=== PATIENT | female | born 1990 | race Caucasian/White ===

== ENCOUNTER 2019-03-27 09:33 | Emergency (ER) | payer BC ==
[2019-03-27 11:14] VITALS: BP 143/92
--- NOTE | 2019-03-27 11:42 | UC ---
Eye Complaint HPI - History of Current Complaint Chief Complaint: UCEar Stated Complaint: EAR PAIN Time Seen by Provider: 03/27/19 11:34 Hx Last Menstrual Period: 03/08/19 Pain Intensity: 7 - Allergies/Home Medications Allergies/Adverse Reactions: Allergies Allergy/AdvReac Type Severity Reaction Status Date / Time No Known Allergies Allergy Verified 03/27/19 11:11 Home Medications: Home Medications Ibuprofen TAB* [Advil TAB*] 400 - 800 mg PO Q8H PRN 03/27/19 [History Confirmed 03/27/19] Vitamin THERAPEUTIC TAB* [Theragran TAB*] 1 tab PO DAILY 03/27/19 [History Confirmed 03/27/19] PMH/Surg Hx/FS Hx/Imm Hx - Surgical History Surgical History: Yes Surgery Procedure, Year, and Place: wisdom teeth extraction - Social History Alcohol Use: Occasionally Substance Use Type: None Smoking Status (MU): Light Every Day Tobacco Smoker Type: Cigarettes Amount Used/How Often: 1/4 PPD Length of Time of Smoking/Using Tobacco: Since Age 15 Physical Exam Vital Signs: Initial Vital Signs Temp 98.7 F 03/27/19 11:09 Pulse 96 03/27/19 11:09 Resp 16 03/27/19 11:09 BP 143/92 03/27/19 11:09 Pulse Ox 100 03/27/19 11:09 Eye Complaint Course/Dx - Differential Dx/Diagnosis Provider Diagnosis: Perforation of right tympanic membrane due to otitis media Discharge ED - Sign-Out/Discharge Documenting (check all that apply): Patient Departure All imaging exams completed and their final reports reviewed: No Studies - Discharge Plan Condition: Stable Prescriptions: Amoxicillin PO (*) [Amoxicillin 875 MG (*)] 875 mg PO BID #20 tab Patient Education Materials: Ear Infection (ED) Referrals: No Primary Care Phys,NOPCP [Primary Care Provider] - Additional Instructions: I suggest you see your ENT in 2-3 weeks for ear recheck - Billing Disposition and Condition Condition: STABLE
--- NOTE | 2019-03-27 11:43 | UC ---
Ear Complaint HPI - HPI Summary HPI Summary: The patient is a 28-year-old female that presents here with right ear pain which is been getting progressively worse the past 3 days. She denies any drainage from that ear. Her hearing is decreased in that ear. She has had mild URI symptoms. She has a remote history of a right tympanic membrane perforation. She was seen by Dr. Frank for that issue. She states her ear feels the same as when it had ruptured. - History of Current Complaint Chief Complaint: UCEar Stated Complaint: EAR PAIN Time Seen by Provider: 03/27/19 11:34 Hx Obtained From: Patient Hx Last Menstrual Period: 03/08/19 Onset/Duration: Gradual Onset, Lasting Days Severity Initially: Mild Severity Currently: Moderate Pain Intensity: 7 Pain Scale Used: 0-10 Numeric Aggravating Factors: Nothing Alleviating Factors: Nothing Associated Signs/Symptoms: Positive: Hearing Loss, URI Symptoms - Allergies/Home Medications Allergies/Adverse Reactions: Allergies Allergy/AdvReac Type Severity Reaction Status Date / Time No Known Allergies Allergy Verified 03/27/19 11:11 Home Medications: Home Medications Ibuprofen TAB* [Advil TAB*] 400 - 800 mg PO Q8H PRN 03/27/19 [History Confirmed 03/27/19] Vitamin THERAPEUTIC TAB* [Theragran TAB*] 1 tab PO DAILY 03/27/19 [History Confirmed 03/27/19] PMH/Surg Hx/FS Hx/Imm Hx Previously Healthy: Yes - Surgical History Surgical History: Yes Surgery Procedure, Year, and Place: wisdom teeth extraction - Family History Known Family History: Positive: Non-Contributory - Social History Alcohol Use: Occasionally Substance Use Type: None Smoking Status (MU): Light Every Day Tobacco Smoker Type: Cigarettes Amount Used/How Often: 1/4 PPD Length of Time of Smoking/Using Tobacco: Since Age 15 Review of Systems All Other Systems Reviewed And Are Negative: Yes Constitutional: Positive: Negative Skin: Positive: Negative Eyes: Positive: Negative ENT: Positive: Ear Ache, Nasal Discharge Respiratory: Positive: Negative Cardiovascular: Positive: Negative Gastrointestinal: Positive: Negative Genitourinary: Positive: Negative Motor: Positive: Negative Neurovascular: Positive: Negative Musculoskeletal: Positive: Negative Neurological: Positive: Negative Psychological: Positive: Negative Physical Exam Triage Information Reviewed: Yes Appearance: Well-Appearing, No Pain Distress, Well-Nourished Vital Signs: Initial Vital Signs Temp 98.7 F 03/27/19 11:09 Pulse 96 03/27/19 11:09 Resp 16 03/27/19 11:09 BP 143/92 03/27/19 11:09 Pulse Ox 100 03/27/19 11:09 Vital Signs Reviewed: Yes Eyes: Positive: Conjunctiva Clear ENT: Positive: Pharynx normal, Nasal congestion, TMs normal - TM is normal on the left side. The right ear exam is notable for a scant amount of blood in her right external auditory canal. She has a minute right TM perforation inferiorly., Uvula midline. Negative: Hearing grossly normal - Decreased hearing right ear., Nasal drainage, Tonsillar swelling, Tonsillar exudate, Trismus, Muffled voice, Dental tenderness Dental Exam: Normal Neck: Positive: Supple, Nontender, No Lymphadenopathy Respiratory: Positive: Lungs clear, Normal breath sounds, No respiratory distress, No accessory muscle use Cardiovascular: Positive: RRR, No Murmur Musculoskeletal: Positive: ROM Intact, No Edema Neurological: Positive: Alert Psychological Exam: Normal Skin Exam: Normal Ear Complaint Course/Dx - Differential Dx/Diagnosis Provider Diagnosis: Perforation of right tympanic membrane due to otitis media, Elevated BP without diagnosis of hypertension Discharge ED - Sign-Out/Discharge Documenting (check all that apply): Patient Departure All imaging exams completed and their final reports reviewed: No Studies - Discharge Plan Condition: Stable Disposition: HOME Prescriptions: Amoxicillin PO (*) [Amoxicillin 875 MG (*)] 875 mg PO BID #20 tab Patient Education Materials: Ear Infection (ED) Forms: *Work Release Referrals: No Primary Care Phys,NOPCP [Primary Care Provider] - Additional Instructions: I suggest you see your ENT in 2-3 weeks for ear recheck BP slight ly elevated and need rechecking in 2-12 weeks - Billing Disposition and Condition Condition: STABLE Disposition: Home
== END 2019-03-27 11:52 | disposition home or self-care (01) ==
LOC: UCCORT 09:33
DX: H66.91 Otitis media, unspecified, right ear (principal); H72.91 Unspecified perforation of tympanic membrane, right ear; R03.0 Elevated blood-pressure reading, without diagnosis of hypertension; F17.210 Nicotine dependence, cigarettes, uncomplicated
CPT/HCPCS: 99202; G0463